=== PATIENT | male | born 1940 | race Caucasian/White ===

== ENCOUNTER → 2018-01-04 | Emergency (ER) | payer MEDICARE, OTHER ==
[~2018-01-04] VITALS: Ht 175.3 cm; Wt 79.0 kg
[~2018-01-04] MED LIST: AMLO5TAB2 PO; ASPI-611; ATOR40TA PO; BIMA2.5D; CLORTHALIDONE PO; DOXY100C43 PO; LOSA50TA3 PO; MULT-1074 PO; OMEG1CAP54 PO; TETanus/Pertussis (Acell)/Diphther VAC/PF (Tdap-Adult) 0.5ml syringe IMVAC ONE; [UNRECOGNIZED DRUG - CODE] PO; brilinta PO; tetanus & diphtheria toxoid (Td) vaccine 0.5ml IMVAC ONE
[2018-01-04 14:39] VITALS: BP 162/100
== END | disposition home or self-care (01) ==
LOC: ER 12:16
DX: S01.21XA Laceration without foreign body of nose, initial encounter (principal); I10 Essential (primary) hypertension; K21.9 Gastro-esophageal reflux disease without esophagitis; Z88.0 Allergy status to penicillin; Z79.899 Other long term (current) drug therapy; W20.8XXA Other cause of strike by thrown, projected or falling object, initial encounter; Y93.89 Activity, other specified; Y92.89 Other specified places as the place of occurrence of the external cause; Y99.8 Other external cause status
CPT/HCPCS: 12011; 90471; 90715; 99283

== ENCOUNTER 2018-10-21 07:01 | Emergency (ER) | payer MEDICARE, OTHER ==
[~2018-10-21] VITALS: Ht 175.3 cm; Wt 79.5 kg
[~2018-10-21 07:01] MED LIST changes: +AMLO-314 PO; -AMLO5TAB2 PO; -DOXY100C43 PO; -TETanus/Pertussis (Acell)/Diphther VAC/PF (Tdap-Adult) 0.5ml syringe IMVAC ONE; -tetanus & diphtheria toxoid (Td) vaccine 0.5ml IMVAC ONE
[2018-10-21] MEDS ORDERED: normal saline 1000ML IV soln IVB ONE ×2 (07:05→08:30)
--- NOTE | 2018-10-21 07:25 | NUR ---
ATTEMPTED TO DO EKG BUT PT TAKEN TO CT PRIOR TO COMPLETION
[2018-10-21 08:00] LABS: BASOPHILS % (AUTO) 0.6 % (0-1); EOSINOPHILS # (AUTO) 0.2 X10'3 (0-0.9); EOSINOPHILS % (AUTO) 3.2 % (0-6); HEMATOCRIT 43.1 % (42.0-52.0); HEMOGLOBIN 14.8 g/dl (14.0-17.9); LYMPHOCYTES # (AUTO) 1.1 X10'3 (1.1-4.8); MEAN CORPUSCULAR HGB CONC 34.3 % (33.0-36.5); MEAN CORPUSCULAR VOLUME 93.4 FL (78-98); MEAN PLATELET VOLUME 7.5 FL (7.4-10.4); MONOCYTES # (AUTO) 0.4 X10'3 (0-0.9); MONOCYTES % (AUTO) 6.2 % (2-12); NEUTROPHILS # (AUTO) 4.4 X10'3 (1.8-7.7); PLATELET COUNT 232 X10'3 (140-440); RED BLOOD COUNT 4.62 X10'6 (4.70-6.10); RED CELL DISTRIBUTION WIDTH 13.4 % (11.5-14.5); WHITE BLOOD COUNT 6.1 X10'3 (4.5-11.0)
[2018-10-21 08:16] LABS: ALANINE AMINOTRANSFERASE 28 U/L (12-78); ALBUMIN 3.3 G/DL (3.4-5.0); ALBUMIN/GLOBULIN RATIO 1.1 (1.1-1.5); ALKALINE PHOSPHATASE 87 IU/L (46-116); ANION GAP 8 (8-16); ASPARTATE AMINO TRANSFERASE 18 U/L (10-37); BILIRUBIN,TOTAL 0.5 MG/DL (0.1-1.0); BLOOD UREA NITROGEN 15 MG/DL (7-18); BUN/CREATININE RATIO 13.3 (5.4-32.0); CALCIUM 8.2 MG/DL (8.5-10.1); CHLORIDE 107 MMOL/L (99-107); CREATININE 1.13 MG/DL (0.60-1.10); GLUCOSE 116 MG/DL (70-104); POTASSIUM 3.9 MMOL/L (3.5-5.1); SODIUM 142 MMOL/L (135-145); TOTAL PROTEIN 6.3 G/DL (6.4-8.2); eGFR 62 ML/MIN
[2018-10-21 08:26] LABS: LIPASE 123 U/L (73-393)
[2018-10-21 08:28] LABS: CLARITY,URINE CLEAR (Clear); COLOR,URINE YELLOW (Yellow); GLUCOSE, URINE NEGATIVE (Neg); KETONES,URINE NEGATIVE (Neg); LEUKOCYTE ESTERASE ,URINE NEGATIVE (Neg); NITRITES, URINE NEGATIVE (Neg); OCCULT BLOOD,URINE NEGATIVE (Neg); PH,URINE 6.5 (4.8-8.0); PROTEIN,URINE 30 mg/dl (Neg); UROBILINOGEN,URINE 0.2 E.U/dL (0.2-1.0)
[2018-10-21] MEDS ORDERED: magnesium citrate 296ml oral solution PO ONE (08:30)
[2018-10-21 08:31] LABS: UA COLLECTION TYPE URINAL
[2018-10-21 08:37] LABS: BACTERIA,URINE NONE SEEN /HPF (Neg); MUCUS STRANDS FEW /LPF (Neg); RBC,URINE NONE SEEN /HPF (0-2); SQUAMOUS EPITHELIAL CELL,UR NONE SEEN /LPF (FEW); WBC,URINE 0-4 /HPF (0-4)
--- NOTE | 2018-10-21 09:10 | NUR ---
dr. [email or web address] at bedside with results
[2018-10-21 09:27] VITALS: BP 155/80
== END 2018-10-21 09:31 | disposition home or self-care (01) ==
LOC: ER 07:02
DX: R10.13 Epigastric pain (principal); R10.12 Left upper quadrant pain; R10.32 Left lower quadrant pain; K59.00 Constipation, unspecified; R94.6 Abnormal results of thyroid function studies; I10 Essential (primary) hypertension; K21.9 Gastro-esophageal reflux disease without esophagitis; Z88.0 Allergy status to penicillin; Z79.82 Long term (current) use of aspirin; Z79.899 Other long term (current) drug therapy; Z98.890 Other specified postprocedural states
CPT/HCPCS: 36415; 74176; 80053; 81001; 83605; 83690; 83735; 83880; 84439; 84443; 84484; 85025; 93005; 99284; J7030

== ENCOUNTER 2022-01-17 04:52 | Emergency (ER) | payer MEDICARE, OTHER ==
[~2022-01-17] VITALS: Ht 172.7 cm; Wt 78.6 kg
[2022-01-17 05:27] LABS: HEMOGLOBIN 12.9 g/dl (14.0-17.9)
[2022-01-17 05:29] LABS: BASOPHILS % (AUTO) 0.5 % (0-1); EOSINOPHILS # (AUTO) 0.2 X10'3 (0-0.9); EOSINOPHILS % (AUTO) 2.3 % (0-6); HEMATOCRIT 37.4 % (42.0-52.0); LYMPHOCYTES # (AUTO) 1.2 X10'3 (1.1-4.8); LYMPHOCYTES % (AUTO) 16.9 % (21-51); MEAN CORPUSCULAR HEMOGLOBIN 31.4 PG (27.0-31.0); MEAN CORPUSCULAR HGB CONC 34.5 g/dL (33.0-36.5); MEAN CORPUSCULAR VOLUME 91.1 FL (78-98); MEAN PLATELET VOLUME 7.7 FL (7.4-10.4); MONOCYTES # (AUTO) 0.7 X10'3 (0-0.9); MONOCYTES % (AUTO) 10.1 % (2-12); NEUTROPHILS % (AUTO) 70.2 % (42-75); PLATELET COUNT 237 X10'3 (140-440); RED BLOOD COUNT 4.11 X10'6 (4.70-6.10); RED CELL DISTRIBUTION WIDTH 13.4 % (11.5-14.5); WHITE BLOOD COUNT 7.2 X10'3 (4.5-11.0)
[2022-01-17 05:45] LABS: D-DIMER 0.63 MG/L FEU (0-0.50)
[2022-01-17] MEDS ORDERED: aspirin 325mg tablet PO ONE (05:50)
[2022-01-17 05:51] LABS: ALANINE AMINOTRANSFERASE 28 U/L (12-78); ALBUMIN/GLOBULIN RATIO 0.9 (1.1-1.5); ALKALINE PHOSPHATASE 78 IU/L (46-116); ANION GAP 9 (8-16); ASPARTATE AMINO TRANSFERASE 19 U/L (10-37); BILIRUBIN,TOTAL 0.5 MG/DL (0.1-1.0); BLOOD UREA NITROGEN 13 MG/DL (7-18); BUN/CREATININE RATIO 11.5 (5.4-32.0); CALCIUM 7.4 MG/DL (8.5-10.1); CHLORIDE 108 MMOL/L (99-107); CREATININE 1.13 MG/DL (0.60-1.10); GLUCOSE 97 MG/DL (70-104); POTASSIUM 3.5 MMOL/L (3.5-5.1); SODIUM 142 MMOL/L (135-145); TOTAL CARBON DIOXIDE 25.1 MMOL/L (24-32); TOTAL PROTEIN 6.2 G/DL (6.4-8.2); eGFR 62 ML/MIN
[2022-01-17] MEDS ORDERED: iohexol 350MG/ML 100ml bottle IV ONE (06:08)
[2022-01-17 07:28] VITALS: BP 123/74
== END 2022-01-17 09:32 | disposition home or self-care (01) ==
LOC: ER 04:53
DX: R07.9 Chest pain, unspecified (principal); R06.02 Shortness of breath; I10 Essential (primary) hypertension; K21.9 Gastro-esophageal reflux disease without esophagitis; Z88.0 Allergy status to penicillin; Z79.899 Other long term (current) drug therapy
CPT/HCPCS: 36415; 71045; 71275; 80053; 83880; 84145; 84484; 85025; 85379; 93005; 99285; Q9967

== ENCOUNTER 2024-08-09 09:15 | Emergency (ER) | payer MEDICARE, OTHER ==
[~2024-08-09] VITALS: Ht 175.3 cm; Wt 76.9 kg
[~2024-08-09 09:15] MED LIST changes: +LOSA-416 PO; -LOSA50TA3 PO
[2024-08-09 10:05] VITALS: TEMP 97.5
[2024-08-09 13:22] LABS: BASOPHILS % (AUTO) 0.9 % (0-1); EOSINOPHILS # (AUTO) 0.1 X10'3 (0-0.9); EOSINOPHILS % (AUTO) 2.5 % (0-6); HEMATOCRIT 44.2 % (42.0-52.0); HEMOGLOBIN 15.1 g/dl (14.0-17.9); LYMPHOCYTES # (AUTO) 1.3 X10'3 (1.1-4.8); LYMPHOCYTES % (AUTO) 23.1 % (21-51); MEAN CORPUSCULAR HEMOGLOBIN 32.3 PG (27.0-31.0); MEAN CORPUSCULAR HGB CONC 34.2 g/dL (33.0-36.5); MEAN CORPUSCULAR VOLUME 94.6 FL (78-98); MONOCYTES # (AUTO) 0.5 X10'3 (0-0.9); MONOCYTES % (AUTO) 8.3 % (2-12); NEUTROPHILS # (AUTO) 3.7 X10'3 (1.8-7.7); NEUTROPHILS % (AUTO) 65.2 % (42-75); PLATELET COUNT 230 X10'3 (140-440); RED BLOOD COUNT 4.67 X10'6 (4.70-6.10); RED CELL DISTRIBUTION WIDTH 13.7 % (11.5-14.5); WHITE BLOOD COUNT 5.7 X10'3 (4.5-11.0)
[2024-08-09 13:32] LABS: ALANINE AMINOTRANSFERASE 27 U/L (12-78); ALBUMIN 3.5 G/DL (3.4-5.0); ALBUMIN/GLOBULIN RATIO 1.2 (1.1-1.5); ALKALINE PHOSPHATASE 77 IU/L (46-116); ANION GAP 5 (8-16); ASPARTATE AMINO TRANSFERASE 18 U/L (10-37); BILIRUBIN,DIRECT 0.2 MG/DL (0-0.3); BILIRUBIN,TOTAL 0.7 MG/DL (0.1-1.0); BLOOD UREA NITROGEN 19 MG/DL (7-18); BUN/CREATININE RATIO 19.2 (10.0-20.0); CHLORIDE 109 MMOL/L (99-107); CREATININE 0.99 MG/DL (0.60-1.10); GLUCOSE 83 MG/DL (70-104); POTASSIUM 4.8 MMOL/L (3.5-5.1); SODIUM 142 MMOL/L (135-145); TOTAL PROTEIN 6.5 G/DL (6.4-8.2); eCRCL 54 ML/MIN; eGFR 72 ML/MIN
[2024-08-09] MEDS ORDERED: ONDA-243 PO (14:14)
[2024-08-09] MEDS ORDERED: OXYC-145 PO (14:14)
[2024-08-09 14:25] VITALS: BP 161/91; PULSE 59; RESP 16; O2SAT 97
== END 2024-08-09 14:26 | disposition home or self-care (01) ==
LOC: ER 09:15
DX: R51.9 Headache, unspecified (principal); G96.00 Cerebrospinal fluid leak, unspecified; I10 Essential (primary) hypertension; K21.9 Gastro-esophageal reflux disease without esophagitis; C7A.00 Malignant carcinoid tumor of unspecified site; H53.2 Diplopia; E78.5 Hyperlipidemia, unspecified; Z88.0 Allergy status to penicillin; Z95.1 Presence of aortocoronary bypass graft; Z85.46 Personal history of malignant neoplasm of prostate; Z95.5 Presence of coronary angioplasty implant and graft
CPT/HCPCS: 36415; 70450; 80048; 80076; 85025; 99284